=== PATIENT | male | born 1995 | race Caucasian/White ===

== ENCOUNTER 2017-07-25 09:46 | Day surgery (SDC) | payer MEDICAID, OTHER ==
[~2017-07-25] VITALS: Ht 175.3 cm; Wt 100.0 kg
[2017-07-25] VITALS (10 sets, daily range): BP systolic 115–145; BP diastolic 58–78; PULSE 66–80; RESP 10–22; Ht 175.3 cm; Wt 100.0 kg
[~2017-07-25 09:46] MED LIST: CEFAZOLIN 2 GM/50 ML (PMX) 50 ML IVPB SCH; SEVOFLURANE 15 MIN ONE; SOD CHLORIDE 0.9% 1,000 ML IV SCH; none per mother
[2017-07-25] MEDS ORDERED: BUPIVACAINE 0.25% (MPF) 10 ML 10 ML VIAL ONE (12:25)
[2017-07-25] MEDS ORDERED: LIDOCAINE 2% (SDV) 5 ML INJ ONE (12:44)
[2017-07-25] MEDS ORDERED: PROPOFOL 20 ML ONE (12:44)
[2017-07-25] MEDS ORDERED: MEPERIDINE 100 MG INJ ONE (12:46)
[2017-07-25] MEDS ORDERED: METOCLOPRAMIDE 10 MG INJ IV PRN (13:00)
[2017-07-25] MEDS ORDERED: LABETALOL HCL 20MG INJ IV PRN (13:00)
[2017-07-25] MEDS ORDERED: OXYCODONE/ACETAMINOPHEN (5/325) TAB PO PRN ×2 (13:00)
[2017-07-25] MEDS ORDERED: ONDANSETRON 4 MG INJ IV PRN (13:00)
[2017-07-25] MEDS ORDERED: MIDAZOLAM 1 MG/ML 2 ML INJ IV PRN (13:00)
[2017-07-25] MEDS ORDERED: FENTAnyl 50 MCG/ML VIAL IV PRN ×3 (13:00)
[2017-07-25] MEDS ORDERED: hydrALAzine 20 MG INJ IV PRN (13:00)
[2017-07-25] MEDS ORDERED: MEPERIDINE 25 MG INJ IV PRN (13:00)
[2017-07-25] MEDS ORDERED: EPHEDrine SULFATE 50 MG/5 ML SYG IV PRN (13:00)
[2017-07-25] MEDS ORDERED: DIPHENHYDRAMINE 50 MG INJ IV PRN (13:00)
[2017-07-25] MEDS ORDERED: CEFAZOLIN 1 GM INJ ONE (13:10)
[2017-07-25] MEDS ORDERED: ONDANSETRON 4 MG INJ ONE (13:10)
[2017-07-25] MEDS ORDERED: HYDROCODONE/APAP (5/325) TAB PO ONE (13:30)
--- NOTE | 2017-07-25 13:31 | OPR ---
Date/Time of Note Date/Time of Note DATE: 07/25/17 TIME: 13:24 Operative Report Procedure Date: Jul 25, 2017 Preoperative Diagnosis right hand dorsal ganglion cyst Postoperative Diagnosis same Operation Performed 1. excision of right hand dorsal ganglion cyst 2 cm 2. localized adjacent tissue transfer with the use of skin flaps 4 sq cm defect 3. therapeutic injection of subcutaneous marcaince cpt code [id number] Surgeon Anuja Crawford MD Anesthesia Type: general Estimated Blood Loss: 0 - 10 ml's Specimen: none Specimens right dorsal ganglion cyst Grafts/Implants: none Complications: no Indications 22 year old male with right hand dorsal ganglion cyst. Patient request surgical excision of his right hand dorsal ganglion cyst. Risks alternatives benefits of percent were discussed the patient. Potential complications including but not limited to bleeding infection pain need for reoperation were discussed the patient patient's best understanding consents to the operation. Procedure Description Something to the OR and prepped and draped in usual sterile fashion surgical timeout was performed IV antibiotics given. Transverse incision is made over the dorsal aspect of the right hand with a 15 blade. Dissection cautery was carried down to the ganglion cyst. Again with cyst is ruptured and the contour extruded. The cyst in the base the cyst wall is excised with cautery after blunt dissection with mosquito graspers. Hemostasis established. Due to tissue defect localized adjacent to his transfer with these of skin flaps were performed. Multilayer closure with interrupted 3-0 Vicryl and running 3-0 Vicryl. Therapeutic subcu times Marcaine is injected dry dressings were applied. Annemarie CRAWFORD Jul 25, 2017 13:31
== END 2017-07-25 14:58 | disposition home or self-care (01) ==
LOC: SDS 09:46
PROVIDERS: ATTEND Surgery
DX: M67.441 Ganglion, right hand (principal); E66.9 Obesity, unspecified; Z68.32 Body mass index [BMI] 32.0-32.9, adult
CPT/HCPCS: 26160; 88304; J0690; J2175; J2405; Z7512; Z7610